=== PATIENT | female | born 1995 | race Two or more races ===

== ENCOUNTER → 2023-12-05 | Emergency (ER) | payer OTHER ==
[~2023-12-05] VITALS: Ht 165.1 cm; Wt 65.8 kg
[~2023-12-05] MED LIST: BENZONATATE 100 MG CAPSULE PO ONE; IPRATROPIUM BROMIDE 0.5 MG/2.5 ML AMPUL.NEB IH ONE; LEVALBUTEROL HCL 0.63 MG/3 ML SOLUTION IH ONE; METHYLPREDNISOLONE SOD SUCC 40 MG VIAL IM ONE; METHYLPREDNISOLONE SOD SUCC 40 MG VIAL ONE
[2023-12-05 23:43] LABS: HEMATOCRIT 35.2 % (36.0-45.00); MEAN CELL VOLUME 88.9 fL (80.00-100.00); MEAN CORPUSCULAR HEMOGLOBIN 30.4 pg (27.00-32.0); MEAN CORPUSCULAR HGB CONC 34.2 g/dl (32.0-36.0); PLATELET COUNT 217 K/uL (150-450); RED BLOOD COUNT 3.96 M/uL (4.00-6.00); RED CELL DISTRIBUTION WIDTH 13.4 % (11.5-14.5)
== END | disposition home or self-care (01) ==
LOC: ER 22:48
PROVIDERS: General Practice
DX: J45.901 Unspecified asthma with (acute) exacerbation (principal); Z91.011 Allergy to milk products; Z88.8 Allergy status to other drugs, medicaments and biological substances; Z20.822 Contact with and (suspected) exposure to COVID-19

== ENCOUNTER 2024-01-08 20:55 | Emergency (ER) | payer OTHER ==
[~2024-01-08] VITALS: Ht 165.1 cm; Wt 65.8 kg
[2024-01-08] MEDS ORDERED: BUTALB/ACETAMINOPHEN/CAFFEINE 1 TAB TABLET PO ONE ×2 (22:18→22:30)
== END 2024-01-08 21:46 | disposition home or self-care (01) ==
LOC: ER 20:56
DX: G43.509 Persistent migraine aura without cerebral infarction, not intractable, without status migrainosus (principal); H53.8 Other visual disturbances; Z87.09 Personal history of other diseases of the respiratory system; Z91.011 Allergy to milk products; Z91.018 Allergy to other foods

== ENCOUNTER 2024-05-11 15:46 | Emergency (ER) | payer OTHER ==
[~2024-05-11] VITALS: Ht 162.6 cm; Wt 63.5 kg
[2024-05-11] MEDS ORDERED: IPRATROPIUM/ALBUTEROL SULFATE 3 ML AMPUL.NEB IH SCH (21:30)
[2024-05-11 23:09] LABS: HEMATOCRIT 39.1 % (36.0-45.00); HEMOGLOBIN 13.2 g/dL (12.0-15.00); MEAN CELL VOLUME 89.2 fL (80.00-100.00); MEAN CORPUSCULAR HEMOGLOBIN 30.1 pg (27.00-32.0); MEAN CORPUSCULAR HGB CONC 33.7 g/dl (32.0-36.0); PLATELET COUNT 247 K/uL (150-450); RED BLOOD COUNT 4.38 M/uL (4.00-6.00); RED CELL DISTRIBUTION WIDTH 12.9 % (11.5-14.5)
[2024-05-12] MEDS ORDERED: PROAIR RESPICL90 MCG IH (01:05)
[2024-05-12] MEDS ORDERED: GILTUSS COUGH-118 M1 PO (01:05)
== END 2024-05-12 01:56 | disposition home or self-care (01) ==
LOC: ER 15:48
PROVIDERS: Preventive Medicine Public Health & General Preventive Medicine
DX: J06.9 Acute upper respiratory infection, unspecified (principal); Z91.011 Allergy to milk products; K59.00 Constipation, unspecified; J45.901 Unspecified asthma with (acute) exacerbation; Z20.822 Contact with and (suspected) exposure to COVID-19